=== PATIENT | female | born 1980 | race American Indian/Alaskan Native ===

== ENCOUNTER 2017-03-06 05:07 | Emergency (ER) | payer MEDICAID ==
[~2017-03-06] VITALS: Ht 167.6 cm; Wt 71.2 kg
[~2017-03-06 05:07] MED LIST: CITA40TA12 PO; GABA600T2 PO; HYDR100C2 PO
[2017-03-06 05:08] VITALS: BP 121/81
== END 2017-03-06 06:12 | disposition home or self-care (01) ==
LOC: ED 05:45
DX: S93.491A Sprain of other ligament of right ankle, initial encounter (principal); F17.200 Nicotine dependence, unspecified, uncomplicated; X50.1XXA Overexertion from prolonged static or awkward postures, initial encounter; Y93.89 Activity, other specified; Y92.89 Other specified places as the place of occurrence of the external cause; Y99.8 Other external cause status
CPT/HCPCS: 99284

== ENCOUNTER 2017-05-25 13:30 | Emergency (ER) | payer SELFPAY ==
[~2017-05-25] VITALS: Ht 167.6 cm; Wt 67.0 kg
[2017-05-25 17:03] VITALS: BP 111/76
[2017-05-25] MEDS ORDERED: IBUPROFEN 200 MG TABLET ONE (17:13)
[2017-05-25] MEDS: IBUPROFEN 200 MG TABLET PO ONE ×2 (17:14→17:18)
== END 2017-05-25 17:22 | disposition home or self-care (01) ==
LOC: ED 17:16
DX: S16.1XXA Strain of muscle, fascia and tendon at neck level, initial encounter (principal); S39.012A Strain of muscle, fascia and tendon of lower back, initial encounter; S00.93XA Contusion of unspecified part of head, initial encounter; Y08.89XA Assault by other specified means, initial encounter; Y93.89 Activity, other specified; Y92.89 Other specified places as the place of occurrence of the external cause; Y99.8 Other external cause status
CPT/HCPCS: 70450; 72110; 72125; 99284

== ENCOUNTER 2018-02-07 20:35 | Emergency (ER) | payer OTHER ==
[~2018-02-07] VITALS: Ht 162.6 cm; Wt 83.4 kg
[2018-02-07 20:38] VITALS: BP 144/80
== END 2018-02-07 21:12 | disposition home or self-care (01) ==
LOC: ED 20:55
DX: S00.06XA Insect bite (nonvenomous) of scalp, initial encounter (principal); W57.XXXA Bitten or stung by nonvenomous insect and other nonvenomous arthropods, initial encounter; Y93.89 Activity, other specified; Y92.89 Other specified places as the place of occurrence of the external cause; Y99.8 Other external cause status
CPT/HCPCS: 99283

== ENCOUNTER 2018-03-06 02:21 | Emergency (ER) | payer SELFPAY ==
[~2018-03-06] VITALS: Ht 165.1 cm; Wt 55.0 kg
[2018-03-06 02:24] VITALS: BP 141/94
[2018-03-06] MEDS ORDERED: ONDANSETRON ODT 4 MG ONE (03:14)
[2018-03-06] MEDS ORDERED: ONDANSETRON ODT 4 MG PO ONE (03:30)
[2018-03-06] MEDS ORDERED: PROMETHAZINE 25 MG/ML, 1ML ONE (04:02)
[2018-03-06] MEDS ORDERED: PROMETHAZINE 25 MG/ML, 1ML IM ONE (04:30)
== END 2018-03-06 04:14 | disposition home or self-care (01) ==
LOC: ED 03:07
DX: R11.0 Nausea (principal); F17.210 Nicotine dependence, cigarettes, uncomplicated
CPT/HCPCS: 81025; 96372; 99283; J2550; Q0162

== ENCOUNTER 2018-03-19 18:26 | Emergency (ER) | payer SELFPAY ==
[~2018-03-19] VITALS: Ht 165.1 cm; Wt 80.1 kg
[2018-03-19 18:36] VITALS: BP 133/97
== END 2018-03-19 19:25 | disposition home or self-care (01) ==
LOC: ED 19:15
DX: F11.151 Opioid abuse with opioid-induced psychotic disorder with hallucinations (principal); F15.151 Other stimulant abuse with stimulant-induced psychotic disorder with hallucinations; F10.10 Alcohol abuse, uncomplicated; B85.0 Pediculosis due to Pediculus humanus capitis; F32.9 Major depressive disorder, single episode, unspecified; F17.210 Nicotine dependence, cigarettes, uncomplicated
CPT/HCPCS: 99281